=== PATIENT | male | born 2000 | race Caucasian/White ===

== ENCOUNTER 2022-04-22 16:57 | Emergency (ER) | payer OTHER ==
[~2022-04-22] VITALS: Ht 182.9 cm; Wt 77.2 kg
[2022-04-22 18:36] VITALS: BP 101/67
[2022-04-22] MEDS ORDERED: TETANUS-DIPTH-ACEL PERTUSSIS 0.5ML SYR Tdap IM ONE (19:30)
== END 2022-04-22 20:00 | disposition home or self-care (01) ==
LOC: ER 16:57
DX: S61.012A Laceration without foreign body of left thumb without damage to nail, initial encounter (principal); F12.10 Cannabis abuse, uncomplicated; Z88.0 Allergy status to penicillin; W22.8XXA Striking against or struck by other objects, initial encounter; Y93.89 Activity, other specified; Y92.89 Other specified places as the place of occurrence of the external cause; Y99.8 Other external cause status
CPT/HCPCS: 12001; 90471; 90715